=== PATIENT | male | born 1995 | race Caucasian/White ===

== ENCOUNTER 2016-09-04 18:45 | Emergency (ER) | payer OTHER ==
--- NOTE | ~2016-09-04 | CR63 ---
[facility] A Service of [facility] & [facility] RADIOLOGY TEXT RESULTS PATIENT: TANGELA BOBBY LOCATION: SED : [birth year] UNIT #: [id number] AGE: [address]: DAVIS GOMEZ SEX: M ORDER DR: [id number] [place] [id number] E MR#: [id number] Acc #: [id number] NAME: TANGELA BOBBY : 1995 SEX: M STUDY DATE/TIME: 09/04/2016 18:33 UNIT: SED ROOM: STUDY DESCRIPTION: CR Chest 2 View Attending Physician: Davis Gomez Ordering Physician: Physician Non-Staff Primary Care Physician: Primary Care Physician No MEDICAL IMAGING REPORT This report is preliminary unless electronic signature is present. EXAM PA and lateral chest INDICATION 21-year-old male with cough, fever, body aches since Saturday night. COMPARISON 10/15/2013. FINDINGS There are patchy mid and lower zone infiltrates in the lungs suspicious for pneumonia. Follow up to clearing is recommended. Heart size normal. Visualized osseous structures are unremarkable. IMPRESSION There are patchy infiltrates in the mid and lower zones of the lungs suspicious for pneumonia. Follow up to clearing is recommended. Dictated by... Fletcher Huber M.D. THIS IS AN ELECTRONICALLY VERIFIED REPORT Fletcher Huber M.D. at 09/05/2016 3:37 PM CARLOS/chelle TD: 09/05/2016 08:26 JOB #: [id number] MEDICAL IMAGING REPORT
[2016-09-04 18:41] LABS: INFLUENZA A NEG (NEG); INFLUENZA B NEG (NEG)
[~2016-09-04 18:45] MED LIST: IBUPROFEN800 MG PO; NAPROSYN250 M1 PO; NO MEDICATIONS; NORFLEX100 M1 PO; VOLTAREN50 MG PO; ZOFRAN ODT4 MG/UDTAB PO
[2016-09-04] MEDS ORDERED: ALBUTEROL17 GM (19:19)
[2016-09-04] MEDS ORDERED: DOXYCYCLINE MO100 MG (19:20)
== END 2016-09-04 19:40 | disposition home or self-care (01) ==
LOC: SED 18:45
PROVIDERS: Nurse Practitioner
DX: J18.9 Pneumonia, unspecified organism (principal); F17.210 Nicotine dependence, cigarettes, uncomplicated
CPT/HCPCS: 71020; 87651; 87804; 99283

== ENCOUNTER 2016-09-06 12:43 | Emergency (ER) | payer OTHER ==
--- NOTE | ~2016-09-06 | CR72 ---
[facility] A Service of [facility] RADIOLOGY TEXT RESULTS PATIENT: TANGELA BOBBY LOCATION: [place] : [birth year] UNIT #: [id number] AGE: [address]: Christy Black MD SEX: M ORDER DR: [id number] [place] [id number] [facility]. [place], [place] [address] [id number] MR#: [id number] Acc #: [id number] NAME: TANGELA BOBBY : 1995 SEX: M STUDY DATE/TIME: 09/06/2016 13:49 UNIT: [place] ROOM: STUDY DESCRIPTION: CR Chest Single View Portable Attending Physician: Christy Black M.D. Ordering Physician: Christy Black M.D. Primary Care Physician: Queta Not Listed MEDICAL IMAGING REPORT This report is preliminary unless electronic signature is present EXAM Portable chest x-ray, 09/06/2016. HISTORY Pneumonia. Cough and congestion 3 days duration. Smoker. TECHNIQUE AP radiograph chest presented. COMPARISON 09/04/2016 FINDINGS No acute bony abnormality. Heart and mediastinum normal in size and contour. Lungs are well inflated. Previously described patchy densities right mid and lower lung zones have cleared. Right lung unremarkable in appearance. Persistent airspace disease left [id number] lung zone without significant change, suggesting persistent pneumonia. This appears to be in the left lower lobe. Continued followup to complete radiographic resolution is recommended. The left upper lung zone is clear. No pleural effusion, pneumothorax, or suspicious nodule. Dictated by... Jeyson Navarro M.D. THIS IS AN ELECTRONICALLY VERIFIED REPORT Jeyson Navarro M.D. at 09/07/2016 4:18 PM ALEXANDRA/real TD: 09/06/2016 16:30 JOB #: [id number] [facility] A Service of [facility] RADIOLOGY TEXT RESULTS PATIENT: TANGELA BOBBY LOCATION: [facility] : [birth year] UNIT #: [id number] AGE: [address]: Christy Black MD SEX: M ORDER DR: MEDICAL IMAGING REPORT COPY
[~2016-09-06 12:43] MED LIST changes: +ALBUTEROL17 GM; +DOXYCYCLINE MO100 MG
[2016-09-06 13:18] LABS: BASOPHIL% 0.5 % (0-2.5); EOSINOPHIL# 0.3 X10e3 (0-0.7); EOSINOPHIL% 4.2 % (0.0-7.0); HEMOGLOBIN 14.5 gm/dL (13.0-16.0); LYMPHOCYTE# 2.1 X10e3 (1.0-3.5); MEAN CELL VOLUME 83.1 FL (83-96); MEAN CORPUSCULAR HEMOGLOBIN 28.7 PG (28-34); MEAN CORPUSCULAR HGB CONC 34.5 g/dL (30-36); MEAN PLATELET VOLUME 8.4 FL (6.5-11.5); MONOCYTE% 13.7 % (3.0-12.0); NEUTROPHIL# 4.2 X10e3 (1.5-7.1); NEUTROPHIL% 54.6 % (40-75); PLATELET COUNT 179 X10e3 (140-420); RED BLOOD COUNT 5.05 X10e (3.90-5.60); RED CELL DISTRIBUTION WIDTH 13.7 % (11.0-15.5); WHITE BLOOD COUNT 7.7 X10e3 (4.0-10.5)
[2016-09-06 13:20] LABS: DIFF IND NO
[2016-09-06 13:43] LABS: URINE SOURCE CLEAN CATCH
[2016-09-06 13:47] LABS: ALBUMIN SERUM 3.9 g/dL (3.5-5.0); ALKALINE PHOSPHATASE 56 U/L (32-92); ALT (SGPT) 31 U/L (10-40); AST (SGOT) 19 U/L (10-42); BILIRUBIN,TOTAL 0.5 mg/dL (0.2-2.0); BLOOD UREA NITROGEN 15 mg/dL (9-23); BUN/CREATININE RATIO 18.75; CARBON DIOXIDE 28 mmol/L (22-31); CHLORIDE 100 mmol/L (100-111); CREATININE SERUM 0.8 mg/dL (0.6-1.4); GLOM FILT RATE Estimated ABOVE60 mL/min (>60); GLUCOSE FASTING 93 mg/dL (70-110); POTASSIUM 3.4 mmol/L (3.5-5.1); PROTEIN TOTAL SERUM 7.6 g/dL (6.0-8.3); SODIUM 135 mmol/L (135-145)
[2016-09-06 13:50] LABS: URINE APPEARANCE CLEAR; URINE BLOOD NEG (NEG); URINE COLOR DK YELLOW; URINE GLUCOSE NEG (NEG); URINE KETONE TRACE (NEG); URINE LEUKOCYTE ESTERASE 1+ (NEG); URINE NITRATE NEG (NEG); URINE PH 7.5 (5-8); URINE PROTEIN TRACE (NEG); URINE SPECIFIC GRAVITY 1.037 (1.003-1.035); URINE UROBILINOGEN >8.0 MG/DL (NEG)
[2016-09-06 13:54] LABS: URINE BACTERIA AUWI NEG (NEGATIVE); URINE SQUAMOUS EPITHELIAL CELL NONE SEEN /[HPF]; UWBCS1 AUWI 0-2 (0-5)
[2016-09-06 13:57] LABS: CULTURE INDICATED? NO
[2016-09-06 14:11] LABS: AMPHETAMINE NEG (NEG); BARBITURATES NEG (NEG); BENZODIAZEPINES POS (NEG); COCAINE NEG (NEG); MARIJUANA NEG (NEG); OPIATES NEG (NEG); TRICYCLIC ANTIDEPRESSANTS NEG (NEG); U METHADONE NEG (NEG)
[2016-09-06 14:17] LABS: URINE BILIRUBIN NEG (NEG)
== END 2016-09-06 15:46 | disposition home or self-care (01) ==
LOC: CED 12:43
PROVIDERS: Nurse Practitioner
DX: J18.9 Pneumonia, unspecified organism (principal); R11.2 Nausea with vomiting, unspecified; T36.0X5A Adverse effect of penicillins, initial encounter; Y92.9 Unspecified place or not applicable; F17.210 Nicotine dependence, cigarettes, uncomplicated; Z79.899 Other long term (current) drug therapy
CPT/HCPCS: 71010; 80053; 80307; 81003; 85025; 96361; 96374; 99284; J2405